=== PATIENT | female | born 1980 | race Caucasian/White ===

== ENCOUNTER 2024-04-17 23:10 | Emergency (ER) | payer MEDICAID, OTHER ==
[2024-04-17] MEDS ORDERED: traMADol HCl 50 MG TAB ONE (23:23)
== END 2024-04-18 00:45 | disposition home or self-care (01) ==
LOC: BURERS 23:10
DX: S82.401A Unspecified fracture of shaft of right fibula, initial encounter for closed fracture (principal); F17.290 Nicotine dependence, other tobacco product, uncomplicated; F17.210 Nicotine dependence, cigarettes, uncomplicated; X50.1XXA Overexertion from prolonged static or awkward postures, initial encounter
CPT/HCPCS: 99283